=== PATIENT | female | born 1945 | race Two or more races ===

== ENCOUNTER 2025-06-07 00:43 | Emergency (ER) | payer MEDICAID ==
[~2025-06-07] VITALS: Ht 165.1 cm; Wt 72.6 kg
[2025-06-07] MEDS ORDERED: LORAZEPAM 1 MG TABLET ONE (01:38)
[2025-06-07] MEDS: LORAZEPAM 1 MG TABLET PO ONE (01:38)
[2025-06-07 02:36] VITALS: BP 145/78; TEMP 99; O2SAT 97
== END 2025-06-07 02:36 | disposition home or self-care (01) ==
LOC: EDBD 00:49 → ER 00:49
DX: F41.9 Anxiety disorder, unspecified (principal); I10 Essential (primary) hypertension; E03.9 Hypothyroidism, unspecified; Z60.2 Problems related to living alone